=== PATIENT | male | born 1955 | race Caucasian/White ===

== ENCOUNTER 2017-01-19 06:35 | Day surgery (SDC) | payer OTHER ==
[2017-01-19] VITALS (10 sets, daily range): BP systolic 131–147; BP diastolic 80–93
[~2017-01-19] VITALS: Ht 180.3 cm; Wt 84.8 kg
[~2017-01-19 06:35] MED LIST: ceFAZolin 1gm/50ml Premix 50 ML IV ONE; celeBREX 200mg Cap **SURGERY PATIENTS ONLY ORAL ONE; oxyCONTIN 20mg tab ORAL ONE
--- NOTE | 2017-01-19 07:04 | Pre-Procedure Note/Attestation ---
Pre-Procedure Note/Attestation Complete Prior to Procedure Planned Procedure: left Procedure Narrative: knee arthroscopy, possible menisectomy, possible synovectomy Indications for Procedure Pre-Operative Diagnosis: left knee medial menisecus tear Attestation I attest that I discussed the nature of the procedure; its benefits; risks and complications; and alternatives (and the risks and benefits of such alternatives ), prior to the procedure, with the patient (or the patient's legal entry level sales representative). I attest that, if there was a reasonable possibility of needing a blood transfusion, the patient (or the patient's legal entry level sales representative) was given the [facility] standardized written summary, pursuant to the Ihsan [place] Blood Safety Act ([place] Health and Safety Code # 1645, as amended). I attest that I re-evaluated the patient just prior to the surgery and that there has been no change in the patient's H&P, except as documented below: JANINA YEBOAH Jan 19, 2017 07:04
--- NOTE | 2017-01-19 07:05 | Operative Note - PDOC ---
Operative Note Operative Note Pre-op Diagnosis: left knee medial menisecus tear Procedure: left knee arthroscopy synovectomy and chondraplasty Post-op Diagnosis: same as pre-op plus Operative Findings: consistent w/pre-op dx studies Anesthesia: MAC Specimen: none Complications: none Condition: stable Estimated Blood Loss: none Implant(s) used?: No JANINA YEBOAH Jan 19, 2017 07:05
--- NOTE | 2017-01-19 08:35 | Anethesia Preoperative Eval ---
Anesthesia Pre-op PMH/ROS General Date of Evaluation: Jan 19, 2017 Time of Evaluation: 09:00 Anesthesiologist: LETY ASA Score: ASA 2 Mallampati Score Class I : Soft palate, uvula, fauces, pillars visible Class II: Soft palate, uvula, fauces visible Class III: Soft palate, base of uvula visible Class IV: Only hard plate visible Mallampati Classification: Class II Surgeon: Emanuel Diagnosis: meniscal tear Surgical Procedure: Left Knee Arthroscopy Anesthesia History: none Social History: smoking Family History: no anesthesia problems Allergies: Coded Allergies: IODINE (Verified Allergy, Unknown, 01/17/17) Medications: see eMAR Anesthesia Pre-op Phys. Exam Physician Exam Constitutional: NAD Neurologic: CN 2-12 intact Cardiovascular: RRR Respiratory: CTA Gastrointestinal: S/NT/ND Airway Exam Mallampati Score: Class II MO: full ROM: full Teeth: intact Anesthesia Pre-op A/P Risk Assessment & Plan Plan: GA Pre-Antibiotics Drug: ancef Given Within 1 Hr of Incision: Yes Time Given: 10:00 Abel Deal M.D. Jan 19, 2017 08:35
[2017-01-19] MEDS ORDERED: COQ1050 MG PO (08:45)
[2017-01-19] MEDS ORDERED: ATORVASTATIN CA20 MG ORAL (08:45)
[2017-01-19] MEDS ORDERED: ASPIR 8181 MG ORAL (08:45)
[2017-01-19] MEDS ORDERED: MULTIVITAMINS1 EAC2 ORAL (08:45)
[2017-01-19] MEDS ORDERED: MELATONIN5 M6 PO (08:45)
[2017-01-19] MEDS ORDERED: Morphine Sulfate PF 10 ML ONE (08:55)
[2017-01-19] MEDS ORDERED: Kenalog-40 1ml Vial ONE (08:55)
[2017-01-19] MEDS ORDERED: Ketorolac 30mg Inj ONE ×2 (08:56→09:00)
[2017-01-19] MEDS ORDERED: Bupivacaine 0.25% Inj 30ml INJ ONE (08:56)
[2017-01-19] MEDS ORDERED: Lidocaine 1% 10mg/ml/EPI 0.01mg/ml 50ml INJ ONE (08:57)
[2017-01-19] MEDS ORDERED: Sterile Water Irrig 1000ml IRRIG ONE (09:00)
[2017-01-19] MEDS ORDERED: Dexamethasone 4mg/ml vial ONE (09:00)
[2017-01-19] MEDS ORDERED: Propofol 200mg/20ml IV ONE (09:00)
[2017-01-19] MEDS ORDERED: Zemuron 50mg/5ml Inj IV ONE (09:00)
[2017-01-19] MEDS ORDERED: LR 1000ml ONE (09:00)
[2017-01-19] MEDS ORDERED: Metoclopramide 10mg/2ml Inj ONE (09:00)
[2017-01-19] MEDS ORDERED: Glycopyrrolate 0.2mg/ml 1ml Vial ONE (09:00)
[2017-01-19] MEDS ORDERED: Midazolam 2mg/2ml Inj ONE (09:00)
[2017-01-19] MEDS ORDERED: fentaNYL 100 mcg/2 mL IV ONE (09:00)
[2017-01-19] MEDS ORDERED: Morphine Sulfate 10mg/ml Inj ONE (09:00)
[2017-01-19] MEDS ORDERED: LR 1000ml 1,000 ML IVLG SCH (09:36)
[2017-01-19] MEDS ORDERED: Duramorph PF 10mg/10ml amp EPIDUR ONE (09:40)
--- NOTE | 2017-01-19 09:40 | Immediate Post-Op Evaluation ---
Immediate Post-Op Evalulation Immediate Post-Op Evalulation Procedure: Left Knee Arthroscopy Date of Evaluation: Jan 19, 2017 Time of Evaluation: 10:30 IV Fluids: 1000 Blood Products: 0 Estimated Blood Loss: 0 Urinary Output: 0 Blood Pressure Systolic: 132 Blood Pressure Diastolic: 74 Pulse Rate: 86 Respiratory Rate: 14 O2 Sat by Pulse Oximetry: 99 Temperature (Fahrenheit): 98 Pain Score (1-10): 0 Nausea: No Vomiting: No Patient Status: awake, reacts, patent, extubated Hydration Status: adequate Drug: ancef Given Within 1 Hr of Incision: Yes Time Given: 09:30 Abel Deal M.D. Jan 19, 2017 09:40
[2017-01-19] MEDS ORDERED: NS Irrig 4000ml IRRIG ONE (09:41)
--- NOTE | 2017-01-19 09:41 | 48 Hour Post Anesthesia Eval ---
Post Anesthesia Evaluation Procedure: Left Knee Arthroscopy Date of Evaluation: Jan 21, 2017 Time of Evaluation: 08:00 Blood Pressure Systolic: 134 0: 69 Pulse Rate: 71 Respiratory Rate: 15 Temperature (Fahrenheit): 98 O2 Sat by Pulse Oximetry: 99 Nausea: Yes Vomiting: Yes Pain Intensity: 0 Hydration Status: adequate Mental Status/LOC: patient returned to baseline Follow-up care needed: patient intructions given Abel Deal M.D. Jan 19, 2017 09:41
[2017-01-19] MEDS ORDERED: DiphenhydrAMINE 50mg/ml Inj IVP PRN (09:45)
[2017-01-19] MEDS ORDERED: Hydromorphone 0.5mg/0.5ml inj IVP PRN (09:45)
[2017-01-19] MEDS ORDERED: Morphine Sulfate 2mg/ml Inj IVP PRN (09:45)
[2017-01-19] MEDS ORDERED: Midazolam 2mg/2ml Inj IVP PRN (09:45)
[2017-01-19] MEDS ORDERED: Metoclopramide 10mg/2ml Inj IVP PRN (09:45)
[2017-01-19] MEDS ORDERED: fentaNYL 100 mcg/2 mL IV PRN (09:45)
[2017-01-19] MEDS ORDERED: Ketorolac 30mg Inj IV PRN (09:45)
[2017-01-19] MEDS ORDERED: Acetaminophen (Non formulary) 100 ML IV ONE (10:00)
[2017-01-19] MEDS ORDERED: D5 1/2NS 1,000 ML IV SCH (16:01)
[2017-01-19] MEDS ORDERED: Tylenol #3 tab (300mg/30mg) ORAL PRN (16:01)
[2017-01-19] MEDS ORDERED: Norco 5mg/325mg tab ORAL PRN (16:01)
[2017-01-19] MEDS ORDERED: HYDROmorphone 1mg/ml Carpuject SUBQ PRN (16:01)
--- NOTE | 2017-01-19 18:30 | Operative Note - Dictated ---
DATE OF OPERATION: 01/19/2017 PREOPERATIVE DIAGNOSES: 1. Intrameniscal degeneration, posterior horn medial meniscus. 2. Medial compartment chondral damage. POSTOPERATIVE DIAGNOSES: 1. Intrameniscal degeneration, posterior horn medial meniscus. 2. Grade 2 chondral damage of medial femoral condyle. 3. Grade 2 chondral damage of patellofemoral compartment. 4. Hypertrophic synovial tissue in medial, lateral and patellofemoral compartment. PROCEDURES: 1. Left knee diagnostic arthroscopy and synovectomy, medial, lateral and patellofemoral compartment. 2. Chondroplasty of medial and patellofemoral compartment. SURGEON: Julian Castellanos M.D. ANESTHESIA: MAC. INDICATION FOR PROCEDURE: The patient is a pleasant gentleman, who has had progressive left knee pain. He had a MRI, which showed some intermittent degeneration of posterior medial meniscus along with some chondral damage of the medial compartment. He had continued symptoms. Therefore, elected him to undergo left knee arthroscopy and possible meniscectomy, synovectomy, and chondroplasty based on the intraoperative findings. Risks, limitations, expectations and complication of the procedure were discussed in detail. All questions were addressed. DESCRIPTION OF PROCEDURE: An informed consent was obtained. The patient was taken to the operative room and placed supine under general anesthesia. Tourniquet was applied on the left proximal thigh. Left leg was prepped and draped in a sterile manner. Time-out was performed. A 20 mL of 0.25% Marcaine plain injected into the left knee. Portal sites were injected with 1% lidocaine with epinephrine. An Esmarch was used to exsanguinate the extremity. Inferolateral stab incision then made. Trocar was introduced into the knee joint. Of note, there was significant resistance entering the trocar into the knee. There is significant hypertrophic synovial tissue in retropatellar space area. Medial compartment was entered and there was significant hypertrophic synovial tissue. Medial working portal was established. Synovectomy in medial, lateral and patellofemoral compartments were performed, better visualized the compartments once the synovectomy was completed and the medial compartment was entered. The meniscus was probed, noted to be intact. There is some degeneration, but no summer tear that required a meniscectomy. There is a grade 2 chondral damage in the medial condylar. Therefore, gentle chondroplasty was performed. Once that was done, the anterior cruciate ligament was probed and noted to be intact. Lateral compartment was entered to free the meniscal chondral damage. The camera was repositioned in the retropatellar space. Synovectomy of the retropatellar space area and excision of the fat pad was continued to better visualize the patellofemoral compartment, which showed grade 2 chondral damage and trochlear groove. Once synovectomy was completed, gentle chondroplasty was completed. The instruments removed. Portal sites was closed with 3-0 Monocryl sutures, Steri-Strips and a sterile dressing were applied. Intraarticular injection containing 0.25% Marcaine, 30 mg of Toradol, 40 mg of Kenalog, and 5 mL Duramorph was injected. The patient was awoken and taken to recovery in stable vital signs. ESTIMATED BLOOD LOSS: None. COMPLICATIONS: None. SPECIMENS: None. IMPLANTS: None. Julian Castellanos M.D. DR: ALISIA JOB#: [id number] CC:
== END 2017-01-19 12:45 | disposition home or self-care (01) ==
LOC: SUR 06:35
DX: M23.322 Other meniscus derangements, posterior horn of medial meniscus, left knee (principal); M67.262 Synovial hypertrophy, not elsewhere classified, left lower leg; Z91.041 Radiographic dye allergy status; S83.242A Other tear of medial meniscus, current injury, left knee, initial encounter; X58.XXXA Exposure to other specified factors, initial encounter; Y93.9 Activity, unspecified; Y92.9 Unspecified place or not applicable
CPT/HCPCS: 29876; 97161; J0690; J1100; J1885; J2250; J2270; J2274; J2405; J2704; J2765; J3010; J3301; J3490; J7120; 94003; 94150

== ENCOUNTER 2017-04-06 07:37 | Inpatient (IN) | payer OTHER ==
[2017-04-06] VITALS (13 sets, daily range): BP systolic 132–204; BP diastolic 87–131
[~2017-04-06] VITALS: Ht 180.3 cm; Wt 88.5 kg
[~2017-04-06 07:37] MED LIST changes: +ASPIR 8181 MG ORAL; +ATORVASTATIN CA20 MG ORAL; +Acetaminophen (Non formulary) 100 ML IV ONE; +Atropine Inj 1mg/10ml Syr IV PRN; +Bupivacaine 0.5% Inj 30 ml vial INJ ONE; +COQ1050 MG PO; +DiphenhydrAMINE 50mg/ml Inj IVP PRN; +HYDROcodone/Acetamin 7.5/325 tab ORAL PRN; +Hydromorphone 0.5mg/0.5ml inj IVP PRN; +Ketorolac 30mg Inj IV PRN; +Ketorolac 60mg Inj IV PRN; +LORazepam Inj 2mg/ml 1ml IV PRN; +LR 1000ml 1,000 ML IVLG SCH; +Labetalol 5mg/ml 20ml vial IV PRN; +Lidocaine 1% Plain 30 ml INJ ONE; +MELATONIN5 M6 PO; +MULTIVITAMINS1 EAC2 ORAL; +Midazolam 2mg/2ml Inj IVP PRN; +Norco 5mg/325mg tab ORAL PRN; +Thrombin 5000 units TOPIC ONE; +Vancomycin 1gm inj IVPB ONE; -ceFAZolin 1gm/50ml Premix 50 ML IV ONE; +ceFAZolin sod 2 GM in D5W 110 ML IVPB ONE; -celeBREX 200mg Cap **SURGERY PATIENTS ONLY ORAL ONE; +fentaNYL 100 mcg/2 mL IV PRN; +oxyCODONE HCL/Acetaminophen 5/325mg ORAL PRN; -oxyCONTIN 20mg tab ORAL ONE
[2017-04-06] MEDS ORDERED: Sterile Water Irrig 1000ml IRRIG ONE (08:00)
[2017-04-06] MEDS ORDERED: Lidocaine 1% Plain 30 ml INJ ONE (08:00)
[2017-04-06] MEDS ORDERED: Glycopyrrolate 0.2mg/ml 1ml Vial ONE (08:00)
[2017-04-06] MEDS ORDERED: Zemuron 50mg/5ml Inj IV ONE (08:00)
[2017-04-06] MEDS ORDERED: NS Irrig 1000ml ONE (08:00)
[2017-04-06] MEDS ORDERED: Midazolam 2mg/2ml Inj ONE (08:00)
[2017-04-06] MEDS ORDERED: Dexamethasone 4mg/ml vial ONE (08:00)
[2017-04-06] MEDS ORDERED: Propofol 200mg/20ml IV ONE (08:00)
[2017-04-06] MEDS ORDERED: fentaNYL 100 mcg/2 mL IV ONE (08:00)
[2017-04-06] MEDS ORDERED: LR 1000ml ONE (08:00)
[2017-04-06] MEDS ORDERED: Neostigmine 1mg/ml 10ml Inj ONE (08:00)
--- NOTE | 2017-04-06 08:29 | Pre-Procedure Note/Attestation ---
Pre-Procedure Note/Attestation Complete Prior to Procedure Planned Procedure: not applicable Procedure Narrative: C56 ARtificial disc replacement , C45 anterior cervical discectomy and fusion Indications for Procedure Pre-Operative Diagnosis: Herniation of C56 and C45 Attestation I attest that I discussed the nature of the procedure; its benefits; risks and complications; and alternatives (and the risks and benefits of such alternatives ), prior to the procedure, with the patient (or the patient's legal logistics service representative). I attest that, if there was a reasonable possibility of needing a blood transfusion, the patient (or the patient's legal logistics service representative) was given the [facility] standardized written summary, pursuant to the Ihsan [place] Blood Safety Act ([place] Health and Safety Code # 1645, as amended). I attest that I re-evaluated the patient just prior to the surgery and that there has been no change in the patient's H&P, except as documented below: DEVORAH DAVIS Apr 06, 2017 08:29
--- NOTE | 2017-04-06 08:30 | Brief Operative Note ---
Immediate Post Operative Note Operative Note Chief Complaint: neck pain and radiculopathy Pre-op Diagnosis: Herniation of C56 and C45 Procedure: C56 ARtificial disc replacement , C45 anterior cervical discectomy and fusion Post-op Diagnosis: same as pre-op Findings: consistent w/pre-op dx studies Surgeon: Jaye Battery Vent Plug Inserter: Emanuel Anesthesia: general Specimen: none Complications: none Condition: stable Estimated Blood Loss: minimal Drains: none Implant(s) used?: Yes - Prodisc C sz 5, nuvasive interlock c sz 6 DEVORAH DAVIS Apr 06, 2017 08:30
[2017-04-06] MEDS ORDERED: HYDROcodone/Acetamin 7.5/325 tab ORAL PRN (08:45)
[2017-04-06] MEDS ORDERED: HYDROmorphone 1mg/ml Carpuject SUBQ PRN (08:45)
[2017-04-06] MEDS ORDERED: Norco 5mg/325mg tab ORAL PRN (08:45)
--- NOTE | 2017-04-06 09:07 | Anethesia Preoperative Eval ---
Anesthesia Pre-op PMH/ROS General Date of Evaluation: Apr 06, 2017 Time of Evaluation: 08:56 Anesthesiologist: Natalia ASA Score: ASA 2 Mallampati Score Class I : Soft palate, uvula, fauces, pillars visible Class II: Soft palate, uvula, fauces visible Class III: Soft palate, base of uvula visible Class IV: Only hard plate visible Mallampati Classification: Class II Surgeon: Jaye Diagnosis: Neck Pain Surgical Procedure: C4-5 ACDF, C 5-6 ADR Anesthesia History: none Family History: no anesthesia problems Allergies: Coded Allergies: SHELLFISH DERIVED (Verified Allergy, Severe, hives, 01/19/17) IODINE (Verified Allergy, Unknown, 01/19/17) Medications: see eMAR Past Medical History Cardiovascular: Reports: HTN, other - HL Anesthesia Pre-op Phys. Exam Physician Exam Constitutional: NAD Neurologic: CN 2-12 intact Cardiovascular: RRR Respiratory: CTA Gastrointestinal: S/NT/ND Airway Exam Mallampati Score: Class II MO: full ROM: limited Teeth: intact Anesthesia Pre-op A/P Risk Assessment & Plan Assessment: ASA 2 Plan: GA, BIS, GlideScope Status Change Before Surgery: No Pre-Antibiotics Dru Grams Ancef IV Given Within 1 Hr of Incision: Yes Time Given: 09:16 Lloyd Fisher MD Apr 06, 2017 09:07
--- NOTE | 2017-04-06 09:41 | Immediate Post-Op Evaluation ---
Immediate Post-Op Evalulation Immediate Post-Op Evalulation Procedure: C4-5 ADR, C 5-6 ACDF Date of Evaluation: Apr 06, 2017 Blood Products: 0 Pain Score (1-10): 3 Nausea: No Vomiting: No Complications 0 Patient Status: awake, reacts, patent, extubated, none Hydration Status: adequate Dru Grams Ancef IV Given Within 1 Hr of Incision: Yes Time Given: 09:16 Lloyd Fisher MD Apr 06, 2017 09:41
[2017-04-06] MEDS ORDERED: Thrombin 5000 units TOPIC ONE (11:35)
[2017-04-06] MEDS ORDERED: Bacitracin 50000 Units Vial ONE (11:35)
--- NOTE | 2017-04-06 12:13 | Immediate Post-Op Evaluation ---
Immediate Post-Op Evalulation Immediate Post-Op Evalulation Procedure: C4-5 ADR, C 5-6 ACDF Date of Evaluation: Apr 06, 2017 Time of Evaluation: 12:13 IV Fluids: 1.3L Blood Products: 0 Estimated Blood Loss: 100 Urinary Output: 100 Blood Pressure Systolic: 166 Blood Pressure Diastolic: 94 Pulse Rate: 75 Respiratory Rate: 16 O2 Sat by Pulse Oximetry: 96 Temperature (Fahrenheit): 97 Pain Score (1-10): 0 Nausea: No Vomiting: No Complications 0 Patient Status: awake, reacts, patent, none Hydration Status: adequate Drug: Ancef 2g Given Within 1 Hr of Incision: Yes Time Given: 09:20 JIMBO STEIN M.D. Apr 06, 2017 12:13
[2017-04-06] MEDS ORDERED: Naloxone 0.4mg/ml Inj IVP PRN (15:15)
[2017-04-06] MEDS ORDERED: Milk of Magnesia 30ml Ud ORAL PRN (15:17)
--- NOTE | 2017-04-06 15:29 | 48 Hour Post Anesthesia Eval ---
Post Anesthesia Evaluation Procedure: C4-5 ADR, C 5-6 ACDF Date of Evaluation: Apr 06, 2017 Time of Evaluation: 16:00 Blood Pressure Systolic: 152 0: 109 Pulse Rate: 90 Respiratory Rate: 15 Temperature (Fahrenheit): 97.4 O2 Sat by Pulse Oximetry: 100 Airway: patent Nausea: No Vomiting: No Pain Intensity: 2 Hydration Status: adequate Cardiopulmonary Status: Stable Mental Status/LOC: patient returned to baseline Follow-up Care/Observations: 0 Post-Anesthesia Complications: 0 Follow-up care needed: N/A Lloyd Fisher MD Apr 06, 2017 15:29
[2017-04-06] MEDS ORDERED: Chloraseptic Spray 20mL Bottle ORAL PRN (16:00)
--- NOTE | 2017-04-06 16:22 | Consultation ---
History of Present Illness General Date patient seen: Apr 06, 2017 Time patient seen: 16:22 Chief Complaint: intractable neck pain with radiculopathy Referring physician: Dr. Cee Reason for Consultation: med lesly Present Illness HPI 61 y/o male with intractable neck pain w/ radiculopathy 2/2 cervical disc herniation C4-5 and C5-6 who presents s/p C56 Artificial disc replacement , C45 anterior cervical discectomy and fusion earlier today. Pt doing well. Pain controlled. Denies n/v, d/c, chest pain, SOB, f/c. Allergies: Coded Allergies: SHELLFISH DERIVED (Verified Allergy, Severe, hives, 01/19/17) IODINE (Verified Allergy, Unknown, 01/19/17) Medication History Scheduled Aspirin* (Aspir 81*), 81 MG ORAL DAILY, (Reported) Atorvastatin Calcium* (Atorvastatin Calcium*), 20 MG ORAL BEDTIME, (Reported) Melatonin (Melatonin), 3 MG PO DAILY, (Reported) Multivitamins* (Multivitamins*), 1 TAB ORAL DAILY, (Reported) Ubidecarenone (Coq10), 50 MG PO DAILY, (Reported) Patient History History Provided By: Patient, Family Member, Medical Record, PMD Healthcare decision maker SIXTO ESQUIVEL- Resuscitation status Full Code Advanced Directive on File No Past Medical/Surgical History Past Medical/Surgical History: (1) HLD (hyperlipidemia) Family History Family History: (1) No significant family history Social History Social History: (1) No significant social history Review of Systems ROS Narrative CONSTITUTIONAL: No weight loss, fever, chills, weakness or fatigue. HEENT: Eyes: No visual loss, blurred vision, double vision or yellow sclerae. Ears, Nose, Throat: No hearing loss, sneezing, congestion, runny nose or sore throat. SKIN: No rash or itching. CARDIOVASCULAR: No chest pain, chest pressure or chest discomfort. No palpitations or edema. RESPIRATORY: No shortness of breath, cough or sputum. GASTROINTESTINAL: No anorexia, nausea, vomiting or diarrhea. No abdominal pain or blood. NEUROLOGICAL: No headache, dizziness, syncope, paralysis, ataxia, numbness or tingling in the extremities. No change in bowel or bladder control. MUSCULOSKELETAL: No muscle, back pain, joint pain or stiffness. HEMATOLOGIC: No anemia, bleeding or bruising. LYMPHATICS: No enlarged nodes. No history of splenectomy. PSYCHIATRIC: No history of depression or anxiety. ENDOCRINOLOGIC: No reports of sweating, cold or heat intolerance. No polyuria or polydipsia. ALLERGIES: No history of asthma, hives, eczema or rhinitis. Physical Exam Physical Exam Narrative General: alert, cooperative, no distress, appears stated age Head: normocephalic, without obvious abnormality, atraumatic Eyes: conjunctivae/corneas clear. PERRL, EOM's intact Throat: lips, mucosa, and tongue normal. MMM Neck: supple, symmetrical, trachea midline, and no JVD Lungs: clear to auscultation bilaterally Heart: regular rate and rhythm, S1, S2 normal, no murmur, click, rub or gallop Abdomen: soft, non-tender, non-distended, bowel sounds normal; no masses or organomegaly Extremities: extremities normal, atraumatic, no cyanosis or edema Pulses: 2+ and symmetric Skin: skin color, texture, turgor normal; dressing c/d/i Neurologic: grossly normal, no focal deficits Last 24 Hour Vital Signs Date Time Temp Pulse Resp B/P (MAP) Pulse Ox O2 Delivery O2 Flow Rate FiO2 04/06/17 16:01 90 15 100 04/06/17 14:10 97.7 89 17 135/87 98 Nasal Cannula 3.0 04/06/17 13:45 97.4 90 15 152/109 100 Nasal Cannula 3.0 04/06/17 13:30 93 20 98 Nasal Cannula 3.0 04/06/17 13:20 94 18 99 Nasal Cannula 3.0 04/06/17 13:10 90 14 182/113 100 Nasal Cannula 3.0 04/06/17 13:00 92 14 204/131 99 Nasal Cannula 3.0 04/06/17 12:58 204/131 04/06/17 12:50 92 16 204/109 99 Nasal Cannula 3.0 04/06/17 12:40 93 18 185/115 98 Nasal Cannula 3.0 04/06/17 12:30 93 18 187/102 98 Nasal Cannula 3.0 04/06/17 12:20 73 13 182/116 99 Simple Mask 6.0 04/06/17 12:15 71 14 185/118 99 Simple Mask 6.0 04/06/17 12:13 75 16 96 04/06/17 12:08 97.0 73 12 166/94 98 Simple Mask 6.0 04/06/17 09:05 98.1 60 20 132/92 99 Room Air Height (Feet): 5 Height (Inches): 11.00 Weight (Pounds): 195 Medications Current Medications Medications (Trade) Dose Ordered Sig/Leeanne Route PRN Reason Start Time Stop Time Status Last Admin Dose Admin Acetaminophen (Tylenol) 650 mg Q4H PRN ORAL headache or temp>101 04/06/17 08:45 05/06/17 08:44 Acetaminophen/ Hydrocodone Bitart ([place] 5/325) 1 tab Q3H PRN ORAL pain score 1-3 04/06/17 08:45 04/13/17 08:44 Acetaminophen/ Hydrocodone Bitart ([place] 7.5/325) 1 ea Q3H PRN ORAL pain score 4-6 04/06/17 08:45 04/13/17 08:44 Acetaminophen/ Hydrocodone Bitart ([place] 7.5/325) 2 ea Q3H PRN ORAL pain scale 7-10 04/06/17 08:45 04/13/17 08:44 Carisoprodol (Soma) 350 mg TIDPRN PRN ORAL SPASM 04/06/17 15:17 05/06/17 15:16 Cefazolin Sodium 1 gm/Dextrose 55 ml @ 110 mls/hr Q8H IV 04/06/17 17:30 04/07/17 09:59 Cetylpyridinium Chloride (Cepacol) 1 lozenge EVERY 2 HOURS PRN JHONY To Patient Comfort 04/06/17 15:17 05/06/17 15:16 Dexamethasone Sodium Phosphate (Decadron 4mg/ml vial) 4 mg Q6HR IVP 04/06/17 18:00 04/07/17 12:01 Docusate Sodium (Colace) 100 mg TWICE A DAY ORAL 04/06/17 18:00 05/06/17 17:59 Hydromorphone HCl (Dilaudid) 1 mg Q2H PRN IVP Breakthrough Pain 04/06/17 08:45 04/13/17 08:44 Hydromorphone HCl (Dilaudid) 1 mg Q4H PRN SUBQ Mild Pain (Pain Scale 1-3) 04/06/17 15:00 04/13/17 08:44 Hydromorphone HCl (Dilaudid) 2 mg Q3H PRN SUBQ Severe Pain (Pain Scale 7-10) 04/06/17 08:45 04/13/17 08:44 Hydromorphone HCl (Dilaudid) 2 mg Q4H PRN SUBQ Moderate Pain (Pain Scale 4-6) 04/06/17 08:45 04/13/17 08:44 Magnesium Hydroxide (Mom) 30 ml QIDPRN PRN ORAL Constipation 04/06/17 15:17 05/06/17 15:16 Naloxone HCl (Narcan) 0.1 mg PRN PRN IVP RR<12/min, pt unarousable 04/06/17 15:15 05/06/17 15:14 Ondansetron HCl (Zofran) 4 mg Q6H PRN IVP Nausea & Vomiting 04/06/17 15:15 05/06/17 15:14 Phenol/Menthol (Chloraseptic) 1 spray Q3H PRN ORAL To Patient Comfort 04/06/17 16:00 05/06/17 15:59 Prochlorperazine (Compazine) 10 mg Q6H PRN IVP Nausea & Vomiting 04/06/17 08:45 05/06/17 08:44 Sodium Chloride 1,000 ml @ 100 mls/hr Q10H IV 04/06/17 16:00 05/06/17 15:59 Temazepam (Restoril) 15 mg HSPRN PRN ORAL Insomnia 04/06/17 15:16 04/13/17 23:59 Assessment/Plan Problem List: (1) HNP (herniated nucleus pulposus), cervical ICD Codes: M50.20 - Other cervical disc displacement, unspecified cervical region SNOMED: 62632376 (2) HLD (hyperlipidemia) ICD Codes: E78.5 - Hyperlipidemia, unspecified SNOMED: 64334365 Status: stable Assessment/Plan s/p C56 Artificial disc replacement , C45 anterior cervical discectomy and fusion on 04/06/17 Appreciate surgery mgmt Cont home med, lipitor Hold ASA for now and resume when OK per surgery Post operative recommendations include: - encourage mobilization/ambulation - encourage incentive spirometry to optimize pulmonary hygiene - DVT/GI prophylaxis as appropriate - PT/OT - pain control, supportive care, bowel regimen - DC planning FULL CODE D/w pt/, RN, surgery regarding mgmt and dispo Emi Nagy M.D. Apr 06, 2017 16:22
[2017-04-06] MEDS: NS w/KCl 20mEq 1,000 ML IV SCH ×2 (16:35→21:32)
[2017-04-06] MEDS: HYDROcodone/Acetamin 7.5/325 tab ORAL PRN (17:06)
[2017-04-06] MEDS ORDERED: traMADol 50mg tab ORAL PRN (17:30)
[2017-04-06] MEDS ORDERED: TransDerm Scop 1mg/72HR Patch TDERMAL ONE (17:40)
[2017-04-06] MEDS: ceFAZolin sod 1 GM in D5W 55 ML IV SCH (17:43)
[2017-04-06] MEDS: Docusate 100mg cap ORAL SCH (17:44)
[2017-04-06] MEDS: Dexamethasone 4mg/ml vial IVP SCH (17:44)
--- NOTE | 2017-04-06 18:45 | Operative Note - Dictated ---
DATE OF OPERATION: 04/06/2017 SURGEON: Edward Cee MD, orthopedic spine surgeon. CoSurgeon: Julian Castellanos M.D. PREOPERATIVE DIAGNOSES: 1. Intractable neck pain. 2. Radiculopathy. 3. Herniation, C4-C5 and C5-C6. 4. Neural foraminal stenosis, C4-C5 and C5-C6. POSTOPERATIVE DIAGNOSES: 1. Intractable neck pain. 2. Radiculopathy. 3. Herniation, C4-C5 and C5-C6. 4. Neural foraminal stenosis, C4-C5 and C5-C6. PROCEDURE PERFORMED: 1. Anterior cervical discectomy and fusion of C4-C5 using NuVasive Interlock C, size 6 and 1 mL of Osteocel, 3 screws, 14 mm length. 2. Anterior cervical discectomy and artificial disc replacement of C5-C6 using a Synthes Pro-Disc C, size 5. 3. Use of intraoperative microscope. 4. Motor evoked potential monitoring. 5. Somatosensory evoked potential monitoring. 6. Supervision and interpretation of fluoroscopy. COMPLICATIONS: None. ANESTHESIA: General. ESTIMATED BLOOD LOSS: Less than 100 mL. INDICATIONS FOR SURGERY: This patient is a 61-year-old male who has a history of diagnoses as listed above. As of result of this, the patient sustained intractable neck pain; radiculopathy; herniation, C4-C5 and C5-C6; and neural foraminal stenosis, C4-C5 and C5-C6. We tried a course of conservative management but despite this course there was still a significant component of persistent, recalcitrant neck pain and arm pain. The MRI demonstrated significant neural foraminal compromise secondary to disc herniations at C4-C5 and C5-C6. We had a long discussion with Said regarding the risks and benefits of surgery. Our discussion included but was not limited to nonoperative management, chiropractic management, another epidural steroid injection as well definitive management in the form of surgery. We recommended anterior cervical discectomy and fusion of C4-C5 and anterior cervical discectomy and artificial disc replacement of C5-C6 using a Synthes Pro-Disc C as final definitive management. We reviewed the risks and benefits of surgery with the patient. Our discussion included a comprehensive review of the clinical issues and the nature of the clinical decision. We reviewed the alternatives, including doing nothing. The patient elected to proceed accordingly with anterior cervical discectomy and fusion of C4-C5 and anterior cervical discectomy and artificial disc replacement of C5-C6. We had a long discussion regarding the risks, alternatives and benefits of surgery. Our description of the risks included a discussion in person as well as a signed consent which detailed all pertinent risks from the procedure itself. Briefly, our discussion included but was not limited to infection, bleeding, pseudarthrosis, spinal cord injury, neurovascular injury, dural tear, CSF leak, neuropathy, paralysis, permanent weakness/drop foot/drop arm, paresthesias, blindness, palsy and weakness. The patient understood there may be a need for a revision surgery or additional procedures. Approach-related complications including dysphonia, dysphagia, blindness, permanent vocal cord and neural injury, hematoma, swallowing and breathing difficulty. Medical complications were reviewed including liver, kidney, shock, cardiopulmonary failure, anesthesia complications including , swelling, damage to the musculature, larynx/voice injury or loss, esophagus/throat, trachea, blood vessels and muscles/muscular sprain and lungs/pneumothorax during this surgical procedure; injury to deeper structures may be temporary or permanent. After this review of risks, the patient understood these and elected to proceed. A written and verbal consent was given. We discussed the pros and cons of all the alternatives. We discussed the uncertainties associated with the decision. Afterwards I assessed the patient's understanding and explored their preferences. All questions were answered and no guarantees were given. Medical clearance was obtained prior to surgery. INTRAOPERATIVE FINDINGS: A broad based disc herniation which was found posterior to a tear/rent in the posterior longitudinal ligament at C4-C5 and C5-C6 causing a considerable amount of neural foraminal stenosis with significant encroachment on the neural foramina and spinal cord. DESCRIPTION OF PROCEDURE: Under the benefit of general endotracheal anesthesia and with the assistance of the entire operative team, the patient was moved from the [facility] onto the operative table in the supine position. The head was secured and carefully positioned appropriately. Bilateral arms were secured with GelPads and foam and all bony prominences were padded. For the bilateral lower extremities SCD and ALEXIS hose were placed for DVT prophylaxis. A surgical timeout was called which corroborated our planned procedures of anterior cervical discectomy and fusion of C4-C5 using NuVasive Interlock C, size 6 and 1 mL of Osteocel, 3 screw, 14 mm length and anterior cervical discectomy and artificial disc replacement of C5-C6 using a Synthes Pro-Disc C, size 5. Preoperative antibiotics were administered within 30 minutes of the incision for antibiotic prophylaxis. Using lateral fluoroscopic radiography, the operative levels were delineated. Next the wound was prepped and draped with Chlorhexidine and sterile drapes. An incision was based on lateral fluoroscopy and we centered our incision at the C4-C5 and C5-C6 interspaces and next using a standard Waite-Berry anterior based approach the incision was taken down through the skin and subcutaneous tissues until the vertebral bodies and their corresponding disc spaces were visualized. A needle was placed into the interspace to confirm placement of the operative interspace and we performed the remainder of procedure under microscopic visualization. Next, using a bipolar and Bovie cautery to ensure meticulous hemostasis, the longus colli was mobilized bilaterally and retractors were placed deep to the longus colli bilaterally to address retraction. Next we turned our attention to the radical anterior discectomy. This was initially performed at C4-C5 first by using a 15 blade scalpel followed by narrow pituitaries, and a micro-sect 5-B curette was used to denude the endplate of all cartilaginous tissue. Next using a [employer] AM8 drillbit the vertebral endplates were denuded in a [id number]-ry-xduh and layer by layer fashion, and ultimately the posterior uncinate joints bilaterally and posterior osteophytic lips and margins causing central and lateral impingement were carefully denuded until visualization of the posterior longitudinal ligament was possible. An endplate preparation was performed in the exact same fashion using an intervertebral patient relations director, sequential distraction was obtained throughout the disc space. We saw a tear/rent in the PLL and this was carefully mobilized and dissected using a micro-set 1-B curet until we visualized a broad-based disc herniation with compression of the spinal cord as well as neural foramina, left more than right sided. This neural foraminal compression was carefully resected using a Kerrison-1 and Kerrison-2 rongeurs until complete decompression of the spinal cord was visualized and complete decompression of the neural foramina and nerve root therein as well as the axilla and lateral margin of the nerve root was visualized and subsequently completely decompressed. The family was notified at one hour intervals throughout the procedure to provide for consistent updates. We next turned our attention towards trialing our implant within the disc space. We initially tried size 5 and afterwards size 6 trial from the it's the NuVasive system at each level, which appeared to be appropriate under AP and lateral fluoroscopy as well as in terms of its height, depth, width and lack of toggle. The PEEK polyetheretherketone interbody cages were then both packed with allograft bone from Osteocel and local autograft bone matrix. Next these were then carefully advanced and secured into their intervertebral spaces under direct visualization and with supervision of AP and lateral fluoroscopic views. We next turned our attention towards plating. Plating was performed with NuVasive interlock-C plating system. A total of 3 screws, size 14 mm in length were inserted and confirmed under AP and lateral fluoroscopy and confirmed to be in excellent position. Next, we turned our attention to the radical anterior discectomy. This was initially performed at C5-C6 first by using a 15 blade scalpel followed by narrow pituitaries and a Microsect 5-B curette was used to denude the endplate of all cartilaginous tissue. Next using a [employer] AM8 drillbit the vertebral endplates were denuded in a [id number] and layer by layer fashion, and ultimately the posterior uncinate joints bilaterally and posterior osteophytic lips and margins causing central and lateral impingement were carefully denuded until visualization of the posterior longitudinal ligament was possible. An endplate preparation was performed in the exact same fashion using an intervertebral patient relations director, sequential distraction was obtained throughout the disc space. We saw a tear/rent in the PLL and this was carefully mobilized and dissected using a Microsect 1-B curet until we visualized a broad-based disc herniation with compression of the spinal cord as well as neural foramina, left more than right sided. This neural foraminal compression was carefully resected using a Kerrison-1 and Kerrison-2 rongeurs until complete decompression of the spinal cord was visualized and complete decompression of the neural foramina and nerve root therein as well as the axilla and lateral margin of the nerve root was visualized and subsequently completely decompressed. We next turned our attention towards trialing our implant within the disc space. We initially tried size 5 and the Pro-Disc Cervical spacer fit well in regards to depth and width. This implant was opened and prepared. Next under direct visualization I confirmed excellent fit in respect to the anterior and posterior vertebral bodies, the uncinate joints and in regards to toggle. Once satisfied with this placement on serial AP and lateral fluoroscopy I turned my attention towards cutting our belén. These were cut in the bones using a reciprocating drill and afterwards all free fragments of bone were irrigated. Next FloSeal was placed into the interspace and the implant was inserted using fluoroscopic guidance. Next the Synthes Pro-Disc C size 5 ADR was then carefully advanced and secured into the intervertebral space under direct visualization and with supervision of AP and lateral fluoroscopic views. After a finger sweep we confirmed removal of all sponges. The retractor was removed and we next turned our attention to meticulous hemostasis with FloSeal and bipolar cautery. After the sponge and needle count was again found to be correct with our second count, we next turned our attention to closure. The wound was again copiously irrigated with antibiotic impregnated saline. Closure consisted of 4-0 clear nylon for the platysma, and 6-0 clear nylon for the superficial skin. Final skin closure and dressings consisted of Dermabond. Prior to final closure, a final radiograph was obtained which demonstrated the hardware is intact with excellent position throughout. The patient tolerated the procedure well. The patient was carefully extubated after the conclusion of surgery. We discussed the findings of the surgery with the family upon completion of the case. At this point the patient was transferred to the spine floor for further observation. Edward Cee M.D. DR: SAPNA JOB#: [id number] CC: CLAUDIA
[2017-04-07] VITALS: BP 143/79
[2017-04-07] MEDS: Dexamethasone 4mg/ml vial IVP SCH ×2 (01:15→06:28)
[2017-04-07] MEDS: ceFAZolin sod 1 GM in D5W 55 ML IV SCH ×2 (01:29→08:52)
[2017-04-07 04:00] VITALS: BP 159/90
[2017-04-07] MEDS: HYDROcodone/Acetamin 7.5/325 tab ORAL PRN (06:29)
[2017-04-07 08:00] VITALS: BP 132/81
[2017-04-07] MEDS: Docusate 100mg cap ORAL SCH (08:51)
[2017-04-07] MEDS ORDERED: Tubing IV Secondary IV ONE (11:29)
--- NOTE | 2017-04-07 12:09 | Diagnostic Imaging Report ---
Indication: Right upper extremity pain. Fluoroscopic images from surgical procedure. Technique: XRAY C Spine 2-3v, Fluoro > 1h; 5 fluoroscopic images from surgical procedure submitted for archival the PACS. Operating surgeon: Jaye Fluoroscopy time: 62.6 seconds Fluoroscopy dose: 11.88 mGy Comparison: None Findings: Fluoroscopic images from surgical procedure submitted to PACS. Endotracheal tube is in place. Images demonstrate fusion of C4-C5 by means of 3 screws. An artificial disc replacement is noted at C5-C6. Impression: Fluoroscopic images from spinal surgery. Please see operative report.
--- NOTE | 2017-04-08 | Discharge Summary ---
DATE OF ADMISSION: 04/06/2017 DATE OF DISCHARGE: 04/07/2017 PROCEDURE PERFORMED DURING ADMISSION: Anterior cervical discectomy and fusion of C4-C5 and artificial disc replacement of C5-C6. REASON FOR ADMISSION: Herniated disk, C4-C5 and C5-C6. HOSPITAL COURSE/TREATMENT RENDERED: DISCHARGE PHYSICAL EXAMINATION: 1. Patient was ambulating with and without the assistance of physical therapy 2. Prior to discharge home incision was clean and dry with minimal swelling 3. Follows commands 4. Alert and oriented 5. Silva discontinued, voiding 6. Incentive spirometer at bedside 7. IVF hep locked MOTOR: Demonstrates expected postoperative bulk and tone. Moves biceps, triceps, and deltoid musculature on command. Moves hip flexors, quadriceps, tibialis anterior, EHL, gastrocsoleus musculature on command as well. TREATMENT RENDERED: 1. Daily nursing care 2. Physical Therapy 3. Occupational Therapy 4. Intravenous medications 5. Oral medications 6. Daily postoperative examinations by Spine surgery team CONDITION OF PATIENT ON DISCHARGE: The condition on discharge is stable for discharge to home DISCHARGE INSTRUCTIONS: Our specific instructions relating to physical activity, medications diet and follow-up care are detailed in our standard operative folder and were given to this patient prior to surgery. We will however summarize these briefly as stated below. Regarding physical activity we would like the patient to limit their flexion, extension and rotation. We also require a limitation on their bending lifting and twisting. All medication has been called in prior to surgery to their pharmacy of choice. They can resume their regular diet once tolerated. We would like them to shower and limit soaking the wound in a tub/Jacuzzi/the ocean for a period of one month or until the incision is completely healed. We will have them follow up in our office in three weeks time for their regularly scheduled appointment. They understand to call our office tomorrow to schedule the time for their three week followup appointment. The patient will notify us should they experience any increase in the severity of pain, redness/swelling/or drainage from their incision. Christie Carpio JOB#: [id number] CC:
== END 2017-04-07 11:30 | disposition home or self-care (01) | DRG 473 ==
LOC: SDSOVERFLO 07:37 → 3E 14:00
DX: M50.121 Cervical disc disorder at C4-C5 level with radiculopathy (principal); M48.02 Spinal stenosis, cervical region; E78.5 Hyperlipidemia, unspecified
CPT/HCPCS: 36415; 72040; 76001; 86850; 86900; 86901; 87081; 94003; 94150; J2250; J2405; J2710